=== PATIENT | male | born 1980 | race Caucasian/White ===

== ENCOUNTER 2020-08-17 18:11 | Emergency (ER) | payer OTHER, SELFPAY ==
[2020-08-17 18:27] VITALS: BP 116/89; PULSE 89; RESP 20; TEMP 36.9; O2SAT 100
--- NOTE | 2020-08-17 19:04 | ED.SKABFB ---
HPI - Skin/Abscess/Foreign Bdy General Chief complaint: Extremity Injury, Lower Stated complaint: infection on right leg Time Seen by Provider: 08/17/20 18:36 Source: patient and RN notes reviewed Mode of arrival: ambulatory Limitations: no limitations History of Present Illness HPI narrative: Patient presents today with a possible abscess to his right upper leg/buttocks x5 days. States it is not continuing to grow in size. History of several abscesses in the past, but has never had to have one lanced and drained. No history of MRSA. No treatment at home, patient takes ibuprofen daily for arthritis. complaint: abscess/boil Related Data Home Medications Medication Instructions Recorded Confirmed ibuprofen 800 mg PO Q6H 08/17/20 08/17/20 Allergies Allergy/AdvReac Type Severity Reaction Status Date / Time No Known Allergies Allergy Verified 08/17/20 18:32 Review of Systems Review of Systems: Narrative: CONSTITUTIONAL: Denies body aches, fever, chills, or sweats. EYES: Denies visual changes, redness, or discharge. ENT: Denies rhinorrhea, congestion, sore throat, or otalgia. CARDIOVASCULAR: Denies chest pain, palpitations, or edema. RESPIRATORY: Denies cough or dyspnea. GASTROINTESTINAL: Denies abdominal pain, nausea, vomiting, or diarrhea. GENITOURINARY: Denies dysuria or hematuria. SKIN: Denies rash, itching, or wounds.+ Right inner thigh MUSCULOSKELETAL: Denies back pain, joint pain, or myalgia. NEUROLOGIC: Denies headache, numbness, tingling, or weakness. PSYCH: Denies depression or anxiety. [facility] Family History Family History Mother Family history of thyroid disease Father Family history of seizure disorder Other Hypertension Social History Social History Smoking status: Heavy tobacco smoker Alcohol intake: current Gender identity (if verbalized by the patient): Male Comments At time of signature, I have reviewed and agree with nursing past medical, surgical, social and family history unless otherwise noted. Please see nursing chart for further information. There is no relevant family history pertinent to the presenting complaint Exam Narrative: Exam Narrative: GENERAL: Well-appearing, well-nourished, and in no acute distress. HEAD: Normocephalic, atraumatic. EYES: EOMI. No redness or drainage. Conjunctivae normal. ENT: Mucous membranes pink and moist. NECK: Normal AROM. CHEST: No respiratory distress. EXTREMITIES: Normal range of motion. No edema. SKIN: Warm, dry, no rash. Capillary refill normal. Normal skin turgor. Right proximal inner thigh/lower buttocks with a 4 x 7 cm area of erythema and induration with fluctuance in the center. Tender to palpation. NEURO: No focal deficits. Alert and oriented x3. Gait steady. PSYCH: Normal affect. No signs of depression or anxiety. Course Vital Signs Vital signs: Vital Signs Temperature 98.4 F 08/17/20 18:27 Pulse Rate 89 08/17/20 18:27 Respiratory Rate 20 08/17/20 18:27 Blood Pressure 116/89 08/17/20 18:27 Pulse Oximetry 100 08/17/20 18:27 Temperature 98.4 F 08/17/20 18:27 Pulse Rate 89 08/17/20 18:27 Respiratory Rate 20 08/17/20 18:27 Blood Pressure 116/89 08/17/20 18:27 Pulse Oximetry 100 08/17/20 18:27 Reviewed. Pt has been instructed to follow up with his PCP regarding his elevated blood pressure today. Procedures Abscess I/D lower extremity: Date of Incision: 08/17/20 Time of Incision: 19:04 Side (if applicable): right Local Anesthetic: lidocaine 1% Technique: incised with #11 blade and probed loculations Irrigation: No Packing used?: iodoform I&D Results: Pus and Blood Abcess I&D Additional Comments: Dressed with large bandaid MDM - Skin/Abscess/Foreign Bdy Differential Diagnosis Differential diagnosis: Likely
== END 2020-08-17 19:20 | disposition home or self-care (01) ==
PROVIDERS: Emergency Provider Nurse Practitioner; PCP Internal Medicine
DX: L02.415 Cutaneous abscess of right lower limb (principal); F17.200 Nicotine dependence, unspecified, uncomplicated
CPT/HCPCS: 10061; 87070; 87205; 99213; G0463

== ENCOUNTER 2021-05-22 17:47 | Emergency (ER) | payer OTHER, SELFPAY ==
[2021-05-22 17:54] VITALS: BP 125/84; PULSE 86; RESP 18; TEMP 36.7; O2SAT 99
[2021-05-22 18:11] VITALS: BP 102/67; PULSE 72; RESP 18; TEMP 36.9; O2SAT 100
--- NOTE | 2021-05-22 18:16 | ED.EYEPROB ---
HPI - Eye Problem General Chief complaint: Eye Problems Stated complaint: eye problems Time Seen by Provider: 05/22/21 18:15 Source: patient and RN notes reviewed Mode of arrival: ambulatory Limitations: no limitations History of Present Illness HPI Narrative: 40-year-old male presents with concern for possible foreign body in his right eye. Reports feeling a sensation of getting something in his eye 3 days ago. Reports since then his eyes been irritated and slightly painful. He denies any purulent discharge, vision changes. Reports some watery discharge. Reports he has been rinsing his eye with a an [id number] eye wash routinely. chief complaint: eye pain Related Data Allergies Allergy/AdvReac Type Severity Reaction Status Date / Time No Known Allergies Allergy Verified 05/22/21 17:51 Review of Systems Review of Systems: Narrative: CONSTITUTIONAL: Denies malaise, chills, sweats, or fever. EYES: Denies visual changes or discharge. Reports right eye irritation, pain, redness ENT: Denies rhinorrhea, congestion SKIN: Denies rash or itching. NEUROLOGIC: Denies headache. All systems reviewed & are unremarkable except as noted in HPI and below PMFSH Family History Family History Mother Family history of thyroid disease Father Family history of seizure disorder Other Hypertension Social History Social History Smoking status: Heavy tobacco smoker Alcohol intake: current Gender identity (if verbalized by the patient): Male Comments At time of signature, agree with nursing past medical, surgical, social and family history. There is no relevant family history pertinent to the presenting complaint Exam Narrative: Exam Narrative: GENERAL: Well-appearing, well-nourished, and in no acute distress. HEAD: Normocephalic, atraumatic. EYES: PERRLA and EOMI. No nystagmus. Conjunctivae clear. Right eye conjunctivae clear, sclera injected, no foreign body noted on visual inspection or Palafox lamp exam, corneal abrasion noted upon Palafox lamp exam, see note ENT: Mucous membranes moist. NECK: Supple. No lymphadenopathy. CHEST: No respiratory distress. Speaks in full sentences. HEART: Regular rate and rhythm. SKIN: Warm, dry, no rash. NEURO: Alert and oriented x3. PSYCH: Normal mood and affect Course Course Emergency Course: Patient is aware of diagnosis, understands and agrees to treatment plan. Anticipatory guidance given. Patient agrees to follow-up as directed and is aware of reasons to seek care at the emergency department. Portions of this record may have been created with voice recognition software Vital Signs Vital signs: Vital Signs Temperature 98.1 F 05/22/21 17:54 Pulse Rate 86 05/22/21 17:54 Respiratory Rate 18 05/22/21 17:54 Blood Pressure 125/84 05/22/21 17:54 Pulse Oximetry 99 05/22/21 17:54 Temperature 98.4 F 05/22/21 18:11 Pulse Rate 72 05/22/21 18:11 Respiratory Rate 18 05/22/21 18:11 Blood Pressure 102/67 05/22/21 18:11 Pulse Oximetry 100 05/22/21 18:11 Reviewed. Procedures Other Procedure Procedure 1: Other Procedure: Tetracaine 1 gtt instilled in right eye, fluorescein stain applied. 4 linear corneal abrasions noted upon palafox lamp exam at approximately 7 o'clock in relation to the pupil. Eye washed with NS 100 ml. No foreign bodies or Kumar sign noted. MDM - Eye Problem MDM Narrative Medical decision making narrative: Consideration of the following conditions may be warranted for the presenting problem, they are not final diagnoses: Bacterial conjunctivitis, allergic conjunctivitis, viral conjunctivitis, foreign body, blepharitis, chalazion, hordeolum, corneal abrasion, preseptal cellulitis, orbital cellulitis. No evidence of proptosis, ophthalmoplegia, vision loss, pain with eye movement. Exam findings show no acute concern
== END 2021-05-22 18:20 | disposition home or self-care (01) ==
PROVIDERS: Emergency Provider Nurse Practitioner; PCP Internal Medicine
DX: S05.01XA Injury of conjunctiva and corneal abrasion without foreign body, right eye, initial encounter (principal); X58.XXXA Exposure to other specified factors, initial encounter; F17.210 Nicotine dependence, cigarettes, uncomplicated
CPT/HCPCS: 99213; A9270; G0463

== ENCOUNTER 2021-08-06 11:28 | Outpatient (CLI) | payer OTHER, SELFPAY ==
--- NOTE | 2021-08-06 | ECG_ITS ---
Measurements Intervals [place] Rate: 61 P: 30 NV: 165 QRS: -11 QRSD: 98 T: 20 QT: 377 QTc: 381 Interpretive Statements SINUS RHYTHM INCOMPLETE RIGHT BUNDLE BRANCH BLOCK BORDERLINE ECG Electronically Signed On 08-06-2021 14:36:34 CDT by Rob Joe D.O.
== END 2021-08-06 11:29 | disposition home or self-care (01) ==
PROVIDERS: PCP Internal Medicine; Visit Provider Internal Medicine
DX: R03.0 Elevated blood-pressure reading, without diagnosis of hypertension (principal); I45.10 Unspecified right bundle-branch block
CPT/HCPCS: 93005

== ENCOUNTER 2021-12-31 14:25 | Emergency (ER) | payer OTHER, SELFPAY ==
--- NOTE | ~2021-12-31 | XR_ITS ---
EXAMINATION: XR ankle LT min 3V EXAM DATE: 12/31/2021 14:44 INDICATION: rolled ankle last night/lateral pain . TECHNIQUE: Left ankle frontal, lateral and oblique projections obtained and reviewed. There is no pr ior study for comparison. FINDINGS: There is acute closed posttraumatic nondisplaced fracture at the base of the left 5th metat arsal bone. No other acute fractures. The ankle mortise appears intact. IMPRESSION: Left 5th metatarsal base fracture. Reviewed, dictated and finalized at location A. [employer]
[2021-12-31 14:35] VITALS: BP 134/83; PULSE 84; RESP 18; TEMP 36.8; O2SAT 98
--- NOTE | 2021-12-31 14:37 | ED.LOWEXIN ---
HPI - Extremity Injury (Lower) General Chief Complaint: Extremity Injury, Lower Stated Complaint: Lt Ankle Pain Time Seen by Provider: 12/31/21 14:37 Source: patient Mode of arrival: ambulatory Limitations: no limitations History of Present Illness HPI Narrative: 41 yo M presents with c/o pain to L ankle and L foot. 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 did not fall completely to the ground, was able to catch himself. ambulatory with limp. ROM decreased with distal NV intact. brusiing noted to lateral aspect L foot. All systems reviewed and negative except as noted above. Related Data Allergies Allergy/AdvReac Type Severity Reaction Status Date / Time No Known Allergies Allergy Verified 12/31/21 14:26 Review of Systems Review of Systems: CONSTITUTIONAL: Denies fever, chills, or sweats. EYES: Denies visual changes, redness, or discharge. ENT: Denies rhinorrhea, congestion, sore throat, or otalgia. CARDIOVASCULAR: Denies chest pain, palpitations, or edema. RESPIRATORY: Denies cough or dyspnea. GASTROINTESTINAL: Denies abdominal pain, nausea, vomiting, or diarrhea. GENITOURINARY: Denies dysuria or hematuria. SKIN: Denies rash or itching. MUSCULOSKELETAL: Denies back pain, joint pain, or myalgia. Reports pain to left foot and left ankle. NEUROLOGIC: Denies headache, numbness, or weakness. PSYCHIATRIC: Denies anxiety or depression. All other systems reviewed are negative, except as documented in HPI. PMFSH Family History Family History Mother Family history of thyroid disease Father Family history of seizure disorder Other Hypertension Social History Social History Years smoked: 26 Smoking status: Current every day smoker Tobacco type: cigarettes Second hand tobacco smoke exposure: No Alcohol intake: current Substance use: never Substance use type: does not use Gender identity (if verbalized by the patient): Male Comments At time of signature, agree with nursing past medical, surgical, social and family history. There is no relevant family history pertinent to the presenting complaint. Exam Narrative: GENERAL: This is a well-nourished, well-developed patient, in no apparent distress. HEAD: normocephalic, atraumatic. EYES: PERRL. Sclera clear/white. Vision is grossly intact. EARS: External ears normal, auditory canals clear and without drainage, TMs normal without perforation. Hearing grossly intact. NOSE: External nose normal with no obvious nasal discharge, nares without redness, no rhinorrhea. THROAT: Mucous membranes moist, posterior pharynx clear. NECK: Neck supple, non-tender without lymphadenopathy, masses or thyromegaly. CARDIOVASCULAR: Regular rate and rhythm without murmurs, gallops, or rubs. RESPIRATORY: Clear to auscultation. Breath sounds equal bilaterally. No wheezes, rales, or rhonchi. GASTROINTESTINAL: Abdomen soft, non-tender, nondistended. Bowel sounds are active. No hepato-splenomegaly, or palpable masses. No guarding. SKIN: warm, Dry, intact with no suspicious lesions or rash, good texture and turgor. NEURO: awake, alert, and oriented to person, place and time. There were no obvious focal neurologic abnormalities. EXTREMITIES: No joint tenderness, effusion, or edema noted. No calf tenderness. Negative Homans sign bilaterally. Mild swelling with lateral tenderness to left ankle. Normal range of motion to left ankle. Tenderness to lateral aspect of left foot with bruising and swelling. Decreased range of motion to left foot. Bony tenderness to proximal aspect left fifth metatarsal. BACK: Nontender without deformity. No CVA tenderness. Course Course Level of Care: Express Care Visit Vital Signs Vital signs: Vital Signs Temperature 36.8 C 12/31/21 14:35 Pulse Rate 84 12/31/21 14:35 Respiratory Rate 18 12/31/21 14:35 Blood Pres
== END 2021-12-31 15:16 | disposition home or self-care (01) ==
PROVIDERS: Emergency Provider Nurse Practitioner Family; PCP Internal Medicine
DX: S92.355A Nondisplaced fracture of fifth metatarsal bone, left foot, initial encounter for closed fracture (principal); X50.9XXA Other and unspecified overexertion or strenuous movements or postures, initial encounter; F17.210 Nicotine dependence, cigarettes, uncomplicated
CPT/HCPCS: 29515; 73610; 99214; G0463

== ENCOUNTER 2022-04-18 09:27 | Outpatient (CLI) | payer OTHER, SELFPAY ==
--- NOTE | 2022-04-18 11:15 | NEURO_ITS ---
Impression: # Complains of numbness of lower extremities, left more than right. History of back surgery. 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 # Needle/EMG exam mildly neurogenic. Nerve Conduction Studies Anti Sensory Summary Table Stim Site NR Peak (ms) P-T Amp (?V) Site1 Site2 Delta-P (ms) Dist (cm) Trent (m/s) Left Sup Fibular Anti Sensory (Ant Lat Mall) 14 cm 4.6 4.3 14 cm Ant Lat Mall 4.6 16.0 35 Right Sup Fibular Anti Sensory (Ant Lat Mall) 14 cm 3.6 16.8 14 cm Ant Lat Mall 3.6 16.0 44 Left Sural Anti Sensory (Lat Mall) Calf 4.3 4.2 Calf Lat Mall 4.3 16.0 37 Right Sural Anti Sensory (Lat Mall) Calf 4.3 5.9 Calf Lat Mall 4.3 16.0 37 Motor Summary Table Stim Site NR Onset (ms) O-P Amp (mV) Site1 Site2 Delta-0 (ms) Dist (cm) Trent (m/s) Left Peroneal Motor (Vastus Med) Ankle 5.0 1.8 Popit Ankle 12.1 46.0 38 Popit 17.1 1.5 Right Peroneal Motor (Vastus Med) Ankle 4.5 4.2 Popit Ankle 11.3 43.0 38 Popit 15.8 3.9 Left Tibial Motor (Abd Simon Brev) Ankle 4.8 2.8 Knee Ankle 13.0 47.0 36 Knee 17.8 1.5 Right Tibial Motor (Abd Simon Brev) Ankle 4.7 3.0 Knee Ankle 11.3 46.0 41 Knee 16.0 1.3 F Wave Studies NR F-Lat (ms) L-R F-Lat (ms) Left Peroneal (Mrkrs) (EDB) 58.45 0.35 Right Peroneal (Mrkrs) (EDB) 58.80 0.35 Left Tibial (Mrkrs) (Abd Hallucis) 58.54 1.34 Right Tibial (Mrkrs) (Abd Hallucis) 57.20 1.34 EMG Side Muscle Nerve Root Ins Act Fibs Amp Dur Recrt Comment Right AntTibialis Dp Br Fibular L4-5 Nml Nml Nml Nml Reduced Right Gastroc Tibial S1-2 Nml Nml Nml Nml Reduced Right Fibularis Long Sup Br Fibular L5-S1 Nml Nml Nml Nml Reduced Right Flex Dig Long Tibial L5-S2 Nml Nml Nml Nml Reduced Right Ext Dig Brev Dp Br Fibular L5, S1 Nml Nml Nml Nml Reduced Left AntTibialis Dp Br Fibular L4-5 Nml Nml Nml Nml Reduced Left Gastroc Tibial S1-2 Nml Nml Nml Nml Reduced Left Fibularis Long Sup Br Fibular L5-S1 Nml Nml Nml Nml Reduced Left Flex Dig Long Tibial L5-S2 Nml Nml Nml Nml Reduced Left Ext Dig Brev Dp Br Fibular L5, S1 Nml Nml Nml Nml Reduced Right ExtHallLong Dp Br Fibular L5, S1 Nml Nml Nml Nml Reduced Left ExtHallLong Dp Br Fibular L5, S1 Nml Nml Nml Nml Reduced MTDD
== END 2022-04-18 09:28 | disposition home or self-care (01) ==
PROVIDERS: PCP Internal Medicine; Visit Provider Internal Medicine
DX: G62.9 Polyneuropathy, unspecified (principal)
CPT/HCPCS: 95886; 95910

== ENCOUNTER 2023-02-11 13:19 | Emergency (ER) | payer OTHER, SELFPAY ==
--- NOTE | 2023-02-11 13:23 | ED.SKABFB ---
HPI - Skin/Abscess/Foreign Bdy General Chief complaint: Skin/Abscess/Foreign Body Stated complaint: Abscess Time Seen by Provider: 02/11/23 13:27 Source: patient, RN notes reviewed and old records reviewed Mode of arrival: ambulatory Limitations: no limitations History of Present Illness HPI narrative: 42-year-old male presents to [facility] with concerns for an abscess to the right lower abdomen. States it started about 4 days ago. Had been applying warm moist compresses and hoping to get it to pop by itself yesterday. Tender to touch, fluctuant center. Has a history of abscesses and has had multiple lanced. Reports history of staph infections Denies fevers Related Data Allergies Allergy/AdvReac Type Severity Reaction Status Date / Time No Known Allergies Allergy Verified 02/11/23 13:30 Review of Systems Review of Systems: All systems reviewed & are unremarkable except as noted in HPI and below Constitutional: Constitutional: Reports no additional constitutional complaints Eyes: Eyes: Reports no additional eye complaints ENT: Reports system reviewed and no additional complaints, except as documented Cardiovascular: Cardiovascular: Reports no additional cardiovascular complaints, Denies chest pain and Denies dyspnea Respiratory: Respiratory: Reports no additional respiratory complaints, Denies chest congestion, Denies cough and Denies dyspnea Gastrointestinal: Gastrointestinal: Reports no additional gastrointestinal complaints, Denies abdominal pain, Denies nausea and Denies vomiting Musculoskeletal: Musculoskeletal: Reports no additional musculoskeletal complaints Integumentary/Breasts: Skin/Breast: Reports as per HPI Neurologic: Reports system reviewed and no additional complaints, except as documented Psychiatric: Psychiatric: Reports no additional psychiatric complaints Allergic/Immunologic: Allergic/Immunologic: Reports no additional allergic/immunologic complaints [facility] Past Medical History Medical History Fracture of left foot Family History Family History Mother Family history of thyroid disease Father Family history of seizure disorder Other Hypertension Social History Social History Years smoked: 26 Smoking status: Current every day smoker Tobacco type: cigarettes Second hand tobacco smoke exposure: No Alcohol intake: current Substance use: never Substance use type: does not use Lack of Transportation: No Lack of Food: Never True Current Housing: I Have Housing Concerned About Future Housing: No Difficulty Paying Gas/Electric Bills: No Difficulty Paying for Meds: No Currently Unemployed: No Education: Trade/Vocational Certificate Difficulty w/ Childcare or Family Care: No Gender identity (if verbalized by the patient): Male Comments At the time of my signature, I reviewed and agree with the nursing past medical, surgical, social, and family history. There is no relevant family history pertinent to the patient complaint. Exam Const: General: cooperative, healthy appearing, comfortable, no acute distress, well developed, alert and well nourished Nutritional Appearance: well nourished and obese morbidly obese Orientation/consciousness: patient oriented x3 Limitations: no limitations HENMT: Head: normal to inspection Ears: hearing grossly normal bilaterally and external ears normal Face/Nose/Sinus: Normal external nose present, Normal nares present, Normal nasal mucous membranes and turbinates present and normal facial exam Face and sinus: normal facial exam Mouth: Yes Normal oral and palatal mucosa present, Yes lip normal and Yes moist mucous membranes Eyes: General: appearance normal, both eyes and all related structures Alignment and Position: alignment normal Periorbital: periorb
[2023-02-11 13:25] VITALS: BP 125/88; PULSE 70; RESP 18; TEMP 36.4; O2SAT 100
--- NOTE | 2023-02-11 14:05 | PC.NURSE ---
PT HAD I&D, WOUND CULTURE OBTAINED, SITE CLEANED BY CAPTAIN [employer]. DRESSING PLACED PER RN. PT TOLERATED WELL.
== END 2023-02-11 13:52 | disposition home or self-care (01) ==
PROVIDERS: Emergency Provider Nurse Practitioner
DX: L02.211 Cutaneous abscess of abdominal wall (principal); F17.210 Nicotine dependence, cigarettes, uncomplicated
CPT/HCPCS: 10060; 87070; 87147; 87181; 87186; 87205; 99213; G0463

== ENCOUNTER 2023-11-13 01:05 | Day surgery (SDC) | payer OTHER, SELFPAY ==
[2023-10-30 13:18] VITALS: BMI 34.9
--- NOTE | 2023-11-09 10:56 | SUR.PREOP ---
Patient called regarding upcoming procedure. Message left on pt's voicemail regarding appointment times.
[2023-11-13 12:12] VITALS: BP 118/87; PULSE 89; RESP 17; TEMP 35.9; O2SAT 99; BMI 34.6
[2023-11-13] MEDS: LACTATED RINGERS 1,000 ML 150 ML IV CONT (12:22)
--- NOTE | 2023-11-13 12:35 | P.PNAN_ITS ---
Anes - Initial Pre Proc Eval Procedure: Operation Date: 11/13/23 14:30 Proposed Procedures p Colonoscopy - Harrison Miranda MD Date/Time: 11/13/23 12:35 Surgeon: Harrison Miranda MD Pre Op Diagnosis: Other fecal abnormalities Patient Data Age: 43 Gender: M Height: 1.88 m Weight: 122.3 kg Last Vital Signs Temp 96.6 F L 11/13/23 12:12 Pulse 89 11/13/23 12:12 Resp 17 11/13/23 12:12 BP 118/87 11/13/23 12:12 Pulse Ox 99 11/13/23 12:12 O2 Del Method Room Air 11/13/23 12:12 Allergies Allergy/AdvReac Type Severity Reaction Status Date / Time No Known Allergies Allergy Verified 11/13/23 12:11 Home Medications Medication Instructions Recorded Confirmed Type rosuvastatin 10 mg tablet See Rx Instructions .Route 09/17/23 11/13/23 Rx .COMPLEX #90 tabs Patient hx anesthesia problems: post op nausea/vomiting Family hx anesthesia problems: none Results Review: All pre-operative results and documents have been reviewed as part of the pre- operative evaluation. [facility] Past Medical History Medical History Fracture of left foot Family History Family History Mother Family history of thyroid disease Father Family history of seizure disorder Other Hypertension Social History Social History Smoking packs per day: 1 Smoking cigarettes per day: 20.0 Years smoked: 30 Smoking pack-years: 30.00 Smoking status: Current every day smoker Tobacco type: cigarettes Second hand tobacco smoke exposure: No Alcohol intake: never Substance use: unknown Substance use type: marijuana Lack of Transportation: No Lack of Food: Never True Current Housing: I Have Housing Concerned About Future Housing: No Difficulty Paying Gas/Electric Bills: No Difficulty Paying for Meds: No Currently Unemployed: No Education: Trade/Vocational Certificate Difficulty w/ Childcare or Family Care: No Living arrangements: with family Gender identity (if verbalized by the patient): Male Spiritual care concerns: No Anes - Eval Final PreProcedure Day of Procedure 11/13/23 12:35 Patient weight: obese Heart: regular rate and rhythm Lungs: clear to auscultation Airway: Mallampati scale class III Neurological: alert and oriented Last oral intake: >/= 8 hours ASA classification: III Emergent: no Anesthetic plan: proceed Anesthesia type and monitoring: general GIVS and standard monitoring Results Review: All pre-operative results and documents have been reviewed as part of the pre- operative evaluation. Informed Consent: The patient's anesthetic plan and its attendant risks and benefits were discussed with the patient/family/POA. Questions were solicited and answers provided to the satisfaction of the patient/family/POA.
[2023-11-13] MEDS: ONDANSETRON INJ 4 MG/2 ML VIAL IV PUSH (12:45)
--- NOTE | 2023-11-13 12:56 | PM.HPGS ---
History of Present Illness History of Present Illness Consent: Risks, benefits, and alternatives have been discussed and questions answered. Patient agrees to proceed with procedure. Chief complaint: Other fecal abnormalities Narrative: Doug Schaefer is a 43 year old male with + cologuard, had colonoscopy 10 years ago Review of Systems Constitutional: Constitutional: Denies headache(s) and Denies weakness Eyes: Eyes: Denies blurry vision ENT: Reports Normal hearing present, Denies headache(s) and Denies neck pain Cardiovascular: Cardiovascular: Denies chest pain and Denies dyspnea Respiratory: Respiratory: Denies dyspnea Gastrointestinal: Gastrointestinal: Reports no additional gastrointestinal complaints Genitourinary: Genitourinary: Denies dysuria Musculoskeletal: Musculoskeletal: Denies neck pain Integumentary/Breasts: Skin/Breast: Denies dry skin Neurologic: Reports Normal hearing present, Denies headache(s) and Denies weakness Psychiatric: Psychiatric: Denies anxiety Endocrine: Endocrine: Denies change in body appearance Hematologic/Lymphatic: Hematologic/Lymphatic: Denies easy bleeding Allergic/Immunologic: Allergic/Immunologic: Denies urticaria PMFSH Past Medical History Medical History (Updated 11/13/23 @ 12:57 by Harrison Miranda MD) Fracture of left foot Positive colorectal cancer screening using Cologuard test Family History Family History Mother Family history of thyroid disease Father Family history of seizure disorder Other Hypertension Social History Social History Smoking packs per day: 1 Smoking cigarettes per day: 20.0 Years smoked: 30 Smoking pack-years: 30.00 Smoking status: Current every day smoker Tobacco type: cigarettes Second hand tobacco smoke exposure: No Alcohol intake: never Substance use: unknown Substance use type: marijuana Lack of Transportation: No Lack of Food: Never True Current Housing: I Have Housing Concerned About Future Housing: No Difficulty Paying Gas/Electric Bills: No Difficulty Paying for Meds: No Currently Unemployed: No Education: Trade/Vocational Certificate Difficulty w/ Childcare or Family Care: No Living arrangements: with family Gender identity (if verbalized by the patient): Male Spiritual care concerns: No Meds Home Medications and Allergies Home Medications Medication Instructions Recorded Confirmed Type rosuvastatin 10 mg tablet See Rx Instructions .Route 09/17/23 11/13/23 Rx .COMPLEX #90 tabs Allergies Allergy/AdvReac Type Severity Reaction Status Date / Time No Known Allergies Allergy Verified 11/13/23 12:11 Vital Signs Vital Signs - 24 hr 11/13/23 12:12 Temperature 96.6 F L Pulse Rate 89 Respiratory Rate 17 Blood Pressure 118/87 Pulse Oximetry 99 Oxygen Delivery Room Air Exam Const: General: comfortable and no acute distress HENMT: Face/Nose/Sinus: Normal nares present Eyes: General: appearance normal, both eyes and all related structures Neck: Neck: no JVD Resp: Auscultation: clear to auscultation bilaterally Cardio: Rate: regular rate Rhythm: regular rhythm GI: Inspection: non-distended GI Palp: Yes Soft to palpation Skin: General skin exam: normal color Neuro: General: gait normal Speech: normal speech Extrem: General: normal to inspection Psych: Mental Status: mental status grossly normal Assessment and Plan Assessment and plan (1) Positive colorectal cancer screening using Cologuard test: Code(s): R19.5 - Other fecal abnormalities Status: Acute Assessment and Plan: colonoscopy
[2023-11-13 13:13] VITALS: BP 132/91; PULSE 71; RESP 20; O2SAT 96
[2023-11-13 13:23] VITALS: BP 119/88; PULSE 87; RESP 24; O2SAT 97
[2023-11-13 13:33] VITALS: BP 118/81; PULSE 66; RESP 20; O2SAT 97
== END 2023-11-13 13:41 | disposition home or self-care (01) ==
PROVIDERS: PCP Nurse Practitioner Family; Visit Provider Internal Medicine Gastroenterology
PROC: 0DJD8ZZ Inspection of Lower Intestinal Tract, Via Natural or Artificial Opening Endoscopic (ICD-10-PCS; CPT 45378; principal; 2023-11-13 14:30)
DX: D12.2 Benign neoplasm of ascending colon (principal); F17.210 Nicotine dependence, cigarettes, uncomplicated; E66.9 Obesity, unspecified; Z68.34 Body mass index [BMI] 34.0-34.9, adult
CPT/HCPCS: 45385; 88305; J1596; J2405; J2704; J7120

== ENCOUNTER 2024-03-08 15:52 | Emergency (ER) | payer OTHER, SELFPAY ==
[2024-03-08 16:01] VITALS: BP 136/94; PULSE 89; RESP 16; TEMP 37.1; O2SAT 98
--- NOTE | 2024-03-08 16:06 | ED.SKABFB ---
HPI - Skin/Abscess/Foreign Bdy General Chief complaint: Skin/Abscess/Foreign Body Stated complaint: ABSCESSES Time Seen by Provider: 03/08/24 16:03 Source: patient and RN notes reviewed Mode of arrival: ambulatory Limitations: dementia History of Present Illness HPI narrative: 43-year-old male presents with concern for ?boils?, 1 under his right axilla and 1 on his left posterior thigh. Reports history hidradenitis supperitiva,, reports he is waiting for treatment with injections for that. He denies fever, aches, chills, sweats. Denies any drainage from the sites. MD complaint: other (Redness) Related Data Allergies Allergy/AdvReac Type Severity Reaction Status Date / Time No Known Allergies Allergy Verified 03/08/24 16:00 Review of Systems Review of Systems: CONSTITUTIONAL: Denies malaise, chills, sweats, or fever. EYES: Denies redness, or discharge. ENT: Denies rhinorrhea, congestion, swollen lips, swollen tongue CARDIOVASCULAR: Denies chest pain, palpitations, or edema. RESPIRATORY: Denies cough or dyspnea. GASTROINTESTINAL: Denies abdominal pain, nausea, vomiting SKIN: Reports boils under his right axilla and on the left posterior thigh. Denies purulent drainage, vesicles, bullae, numbness, pain beyond proportion MUSCULOSKELETAL: Denies joint pain or myalgia. NEUROLOGIC: Denies headache. All systems reviewed & are unremarkable except as noted in HPI and below PMFSH Past Medical History Medical History Fracture of left foot Positive colorectal cancer screening using Cologuard test Family History Family History Mother Family history of thyroid disease Father Family history of seizure disorder Other Hypertension Social History Social History Smoking packs per day: 1 Smoking cigarettes per day: 20.0 Years smoked: 30 Smoking pack-years: 30.00 Smoking status: Current every day smoker Tobacco type: cigarettes Second hand tobacco smoke exposure: No Alcohol intake: never Substance use: unknown Substance use type: marijuana Lack of Transportation: No Lack of Food: Never True Current Housing: I Have Housing Concerned About Future Housing: No Difficulty Paying Gas/Electric Bills: No Difficulty Paying for Meds: No Currently Unemployed: No Education: Trade/Vocational Certificate Difficulty w/ Childcare or Family Care: No Living arrangements: with family Gender identity (if verbalized by the patient): Male Spiritual care concerns: No Comments At time of signature, agree with nursing past medical, surgical, social and family history. There is no relevant family history pertinent to the presenting complaint Exam Narrative: GENERAL: Well-appearing, well-nourished, and in no acute distress. HEAD: Normocephalic, atraumatic. EYES: PERRLA, conjunctivae clear ENT: Mucous membranes moist. NECK: Supple. No lymphadenopathy CHEST: Clear to auscultation. No respiratory distress. HEART: Regular rate and rhythm. SKIN: Warm, dry. Approximately 4 cm in diameter raised erythematous tender area to the left posterior thigh without fluctuation, 2 raised erythematous tender areas a proximally 2 cm in diameter each noted to the chest wall under the right axilla. No vesicles, bullae, necrosis, ecchymosis, crepitus noted. NEURO: Alert and oriented x3. PSYCH: Normal mood and affect Course Course Emergency Course: Patient is aware of diagnosis, understands and agrees to treatment plan. Anticipatory guidance given. Patient agrees to follow-up as directed and is aware of reasons to seek care at the emergency department. Portions of this record may have been created with voice recognition software Level of Care: Express Care Visit Vital Signs Vital signs: Vital Signs Temperature 98.7 F 03/08/24 16:01 P
== END 2024-03-08 16:40 | disposition home or self-care (01) ==
PROVIDERS: Emergency Provider Nurse Practitioner
DX: L73.2 Hidradenitis suppurativa (principal); F17.210 Nicotine dependence, cigarettes, uncomplicated
CPT/HCPCS: 99213; G0463

== ENCOUNTER 2024-12-20 08:36 | Outpatient (CLI) | payer OTHER, SELFPAY ==
--- NOTE | ~2024-12-20 | US_ITS ---
EXAM: ABDOMEN ULTRASOUND HISTORY: generalized abdominal pain site unspecified COMPARISON: Reference is made to a CT examination of the abdomen and pelvis performed 02/12/2019 FINDINGS: LIVER: The liver is increased in echogenicity and unremarkable in size. The portal vein is patent demonstrating hepatopedal flow. The contour of the liver is smooth. GALLBLADDER: Surgically absent BILE DUCTS: Common bile duct measures 2.9mm. PANCREAS: Limited evaluation of the pancreas secondary to overlying bowel gas SPLEEN: The spleen is heterogeneous in echogenicity and unremarkable in size measuring 10.6cm in long itudinal dimension. Findings suggesting prior granulomatous disease are present. RIGHT KIDNEY: 11.4 cm. In length. No hydronephrosis or bulky renal calculi. LEFT KIDNEY: 12.6cm in length. No hydronephrosis or renal calculi. VASCULATURE : The abdominal aorta is nonaneurysmal. The IVC is patent. IMPRESSION: Fatty infiltration of the liver. Evaluation of the pancreas is limited by overlying bowel gas. Findings suggesting prior granulomatous disease. Reviewed, dictated and finalized at location A. NICAL PROFESSIONAL
== END 2024-12-20 08:37 | disposition home or self-care (01) ==
PROVIDERS: PCP Nurse Practitioner Family; Visit Provider Nurse Practitioner Family
DX: M54.10 Radiculopathy, site unspecified (principal); M54.9 Dorsalgia, unspecified; R10.13 Epigastric pain; K76.0 Fatty (change of) liver, not elsewhere classified
CPT/HCPCS: 76700

== ENCOUNTER 2025-01-19 00:48 | Day surgery (SDC) | payer OTHER, SELFPAY ==
[2025-01-14 08:55] VITALS: BMI 36.0
--- OUTSIDE RECORDS SUMMARY | 2025-01-19 00:52 | XMS_ITS | Clinical Summary ---
Author Organization [facility] Address [address] [place] [address] Care Team Providers Care Sports Director Name Role Phone Parisa Martin MD Primary Care Provider Source Comments [facility],non-owned Affiliates and Associated Physician Practices is amultiple site organization consisting of ambulatory clinics and hospital sitesin [place], [place], [place] and [place]. This disclosure is being madepursuant to the Care Everywhere program and may not contain all information available regarding this patient. Last updated 18.[facility] [employer] Social History Tobacco Use Types Packs/Day Years Used Date Smoking Tobacco: Never Assessed Sex and Gender Information Value Date Recorded Sex Assigned at Not on file Gender Identity Not on file Sexual Orientation Not on file Plan of Treatment Health Maintenance Due Date Last Done Comments COLOGUARD (AGES 45-75) - COL ON CA SCREENING 1978 COLON MONITORING 1978 COLONOSCOPY - COLON CA SCREENING 1978 CT COLONOGRAPHY - COLON CA SCREENING 1978 Colorectal Cancer Screening 1978 FIT - COLON CA SCREENING 1978 FLEX SIG - COLON CA SCREENING 1978 LIPID TESTING 1978 HIV SCREENING 1993 HEPATITIS C SCREENING 06/29/1996 DTAP/TDAP/TD VACCINES (1 - Tdap) 1997 HEPATITIS B VACCINE (1 of 3 - 19+ 3-dose series) 1997 COVID-19 VACCINE ( - 2023-2 5 season) 2024 INFLUENZA VACCINE (#1) 2024 DEPRESSION SCREENING 11/05/2024 ZOSTER VACCINE (1 of 2) 2028 HIB VACCINE Aged Out No longer eligi ble based on patient's age to complete this topic HPV VACCINE Aged Out No longer eligi ble based on patient's age to complete this topic MENINGOCOCCAL (Group B) VACC INE SHARED DECISION-MAKING Aged Out No longer eligibl e based on patient's age to complete this topic MENINGOCOCCAL GROUPS A/C/Y/W VACCINE Aged Out No longer eligible b ased on patient's age to complete this topic PNEUMOCOCCAL VACCINE Aged Out No long er eligible based on patient's age to complete this topic Care Teams Sports Director Relationship Specialty Start Date End Date Parisa Martin MD PCP - General 07/21/11
--- OUTSIDE RECORDS SUMMARY | 2025-01-19 00:52 | XMS_ITS | Clinical Summary ---
Author Organization [facility] Address [address] [place] [address] Care Team Providers Care Book Sewing Machine Operator Name Role Phone Khris Hernandez MD Primary Care Provider [phone] Allergies No known active allergies Medications rosuvastatin 10 MG tablet Take 0.5 tablets (5 mg total) by mouth nightly at bedtime. Active cyclobenzaprine 10 MG tablet Take 10 mg by mouth 3 (three) times daily as needed for Muscle Spasms. Active Active Problems Problem Noted Date Diagnosed Date Lumbar radiculopathy 12/19/2019 Family History Medical History Relation Comments Seizures Father Relation Status Comments Father Alive seizure history Mother Alive Sister Alive Social History Tobacco Use Types Packs/Day Years Used Date Smoking Tobacco: Every Day Cigarettes Smokeless Tobacco: Never Tobacco Cessation:Counseling Given: Yes Alcohol Use Standard Drinks/Week Comments Not Currently 0 (1 standard drink = 0.6 oz pur e alcohol) Overall Financial Resource Strain (CARDIA) Answe r Date Recorded Difficulty of Paying Living Expenses Not hard at all 12/19/2019 [facility] [place] [facility] Occup[facility] ional [facility] - Occupational Stress Questionnaire Answer Date Recorded Feeling of Stress Not at all 12/19/2019 Exercise Vital Sign Answer Date Recorde d Days of Exercise per Week 0 days 2019 Minutes of Exercise per Session 0 min 12/19/2019 Hunger Vital Sign Answer Date Recorded Worried About Running Out of Food in the Last Ye ar Never true 12/19/2019 Ran Out of Food in the Last Year Never true 12/19/2019 PRAPARE - Transportation Answer Date Re corded Lack of Transportation (Medical) No 12/19/2019 Lack of Transportation (Non-Medical) No 12/19/2019 Sex and Gender Information Value Date Recorded Sex Assigned at Not on file Legal Sex Male 8:06 AM CDT Gender Identity Not on file Sexual Orientation Not on file 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 Not on file Not on file 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 Not on file Not on file Last Filed Vital Signs Vital Sign Reading Time Taken Comments Blood Pressure 165/95 05/26/2023 9:30 PM CDT Pulse 89 05/26/2023 9:02 PM CDT Temperature 36.8 C (98.3 F) 05/26/2023 9:02 PM CDT Respiratory Rate 18 05/26/2023 9:30 PM CDT Oxygen Saturation 96% 05/26/2023 9:30 PM CDT Inhaled Oxygen Concentration - - Weight 124.7 kg (275 lb) 05/26/2023 9:02 PM CDT Height 188 cm (6' 2 ) 05/26/2023 9:02 PM CDT Body Mass Index 35.31 05/26/2023 9:02 PM CDT Plan of Treatment Health Maintenance Due Date Last Done Comments Colorectal Cancer Screening Colonoscopy (10 Years) 1978 Annual Physical 1981 Pneumococcal Vaccine: Pediat rics (0 to 5 Years) and At-Risk Patients (6 to 64 Years) (1 of 2 - PCV) 1984 Hepatitis C 1996 DTaP, Tdap and Td Vaccines ( 1 - Tdap) 1997 Hepatitis B Vaccines (1 of 3 - 19+ 3-dose series) 1997 COVID-19 Vaccine ( - 2023-2 5 season) 2024 Influenza Adult (#1) 2024 Meningococcal B Vaccine Aged Out No l onger eligible based on patient's age to complete this topic Meningococcal Vaccine Aged Out No jing shahida eligible based on patient's age to complete this topic RSV Immunizations Under 20 Months Aged Out No longer eligible based on patient's age to complete this topic Insurance [facility] [place] Care Teams Book Sewing Machine Operator Relationship Specialty Start Date End Date Khris Hernandez MD [address] [place] [phone] PCP - General INTERNAL MEDICINE 01/02/20
--- OUTSIDE RECORDS SUMMARY | 2025-01-19 00:52 | XMS_ITS | Referral Summary ---
Author Organization [facility] Address [address] [place] [address] Care Team Providers Care Station Captain Name Role Phone Parisa Martin MD Primary Care Provider [phone] Source Comments [facility],non-[facility] Affiliates and Associated Physician Practices is amultiple site organization consisting of ambulatory clinics and hospital sitesin [place], [place], [place] and [place]. This disclosure is being madepursuant to the Care Everywhere program and may not contain all information available regarding this patient. Last updated 18.[facility] Social History Tobacco Use Types Packs/Day Years Used Date Smoking Tobacco: Never Assessed Sex and Gender Information Value Date Recorded Sex Assigned at Not on file Gender Identity Not on file Sexual Orientation Not on file Plan of Treatment Not on file Care Teams Station Captain Relationship Specialty Start Date End Date Parisa Martin MD PCP - General 07/21/11
--- OUTSIDE RECORDS SUMMARY | 2025-01-19 00:52 | XMS_ITS | Patient Health Summary ---
Author Organization [facility] Address [address] [place] [address] Care Team Providers Care Python Engineer Name Role Phone Parisa Martin MD Primary Care Provider [phone] Note from [facility],non-owned Affiliates and Associated Physician Practices is amultiple site organization consisting of ambulatory clinics and hospital sitesin [place], [place], [place] and [place]. This disclosure is being madepursuant to the Care Everywhere program and may not contain all information available regarding this patient. Last updated 18.[facility] Social History Tobacco Use Types Packs/Day Years Used Date Smoking Tobacco: Never Assessed Sex and Gender Information Value Date Recorded Sex Assigned at Not on file Gender Identity Not on file Sexual Orientation Not on file Care Teams Python Engineer Relationship Specialty Start Date End Date Parisa Martin MD PCP - General 07/21/11
[2025-01-19 06:52] VITALS: BP 150/83; PULSE 93; RESP 16; TEMP 36.1; O2SAT 98
[2025-01-19] MEDS: LACTATED RINGERS 1,000 ML 150 ML IV CONT (07:02)
[2025-01-19] MEDS: ONDANSETRON INJ 4 MG/2 ML VIAL IV PUSH (07:08)
--- NOTE | 2025-01-19 07:09 | P.PNAN_ITS ---
Anes - Initial Pre Proc Eval Procedure: Operation Date: 01/19/25 08:00 Proposed Procedures p Esophagogastroduodenoscopy & Colonoscopy - Harrison Miranda MD Date/Time: 01/19/25 07:09 Surgeon: Harrison Miranda MD Pre Op Diagnosis: Irritable bowel syndrome with constipatio, Epigast Patient Data Age: 44 Gender: M Height: 1.88 m Weight: 123 kg Last Vital Signs Temp 36.1 C L 01/19/25 06:52 Pulse 93 01/19/25 06:52 Resp 16 01/19/25 06:52 BP 150/83 H 01/19/25 06:52 Pulse Ox 98 01/19/25 06:52 O2 Del Method Room Air 01/19/25 06:52 Allergies Allergy/AdvReac Type Severity Reaction Status Date / Time No Known Allergies Allergy Verified 01/19/25 06:49 Home Medications ?Medication ?Instructions ?Recorded ?Confirmed ?Type cholecalciferol (vitamin D3) 125 125 mcg PO DAILY 04/15/24 01/19/25 History mcg (5,000 unit) capsule iron BYMOUTH 04/15/24 01/07/25 History lisinopril 10 mg tablet See Rx Instructions .Route 12/03/24 01/19/25 Rx .COMPLEX #90 tabs ezetimibe 10 mg tablet See Rx Instructions .Route 12/26/24 01/19/25 Rx .COMPLEX #90 tabs linaclotide 145 mcg capsule 145 mcg PO DAILY #90 caps 01/07/25 01/19/25 Rx (Linzess) omeprazole 40 mg capsule,delayed 40 mg PO DAILY #30 caps 01/07/25 01/19/25 Rx release Patient hx anesthesia problems: none Family hx anesthesia problems: none Results Review: All pre-operative results and documents have been reviewed as part of the pre- operative evaluation. [facility] Past Medical History Medical History (Updated 01/19/25 @ 07:09 by Homero Puckett MD) Hypertension Positive colorectal cancer screening using Cologuard test Hidradenitis suppurativa Psoriasis Fracture of left foot Surgical History Surgical History (Updated 01/19/25 @ 07:10 by Homero Puckett MD) H/O colonoscopy H/O hernia repair Family History Family History Mother Family history of thyroid disease Father Family history of seizure disorder Other Hypertension Social History Social History Smoking packs per day: 1 Smoking cigarettes per day: 20.0 Years smoked: 30 Smoking pack-years: 30.00 Smoking status: Current every day smoker Tobacco type: cigarettes Second hand tobacco smoke exposure: No Alcohol intake: never Substance use: current Substance use type: marijuana Other substance usage details: smokes marijuana a few times a week Do You Feel Safe in your Home?: Yes Lack of Transportation: No Lack of Food: Never True Current Housing: I Have Housing Concerned About Future Housing: No Difficulty Paying Gas/Electric Bills: No Difficulty Paying for Meds: No Currently Unemployed: No Education: Trade/Vocational Certificate Difficulty w/ Childcare or Family Care: No Living arrangements: with family Occupation/Education: occupation Gender identity (if verbalized by the patient): Male Sexual Orientation (if Verbalized by the Patient): Straight or Heterosexual Spiritual care concerns: No Agree to blood products: Yes Anes - Eval Final PreProcedure Day of Procedure 01/19/25 07:09 Patient weight: obese Heart: regular rate and rhythm Lungs: clear to auscultation Airway: Mallampati scale class III Neurological: alert and oriented Last oral intake: >/= 8 hours ASA classification: III Emergent: no Anesthetic plan: proceed Anesthesia type and monitoring: general GIVS and standard monitoring Results Review: All pre-operative results and documents have been reviewed as part of the pre- operative evaluation. Informed Consent: The patient's anesthetic plan and its attendant risks and benefits were discussed with the patient/family/POA. Questions were solicited and answers provided to the satisfaction of the patient/family/POA.
--- NOTE | 2025-01-19 07:09 | SUR.PREOP ---
Patient requesting zofran due to nausea and vomiting. Orders received from Dr. Puckett for 4mg IV push zofran once.
--- NOTE | 2025-01-19 07:48 | WPDHPUPDATE1 ---
History and Physical Update Update Date/Time: 01/19/25 07:48 History and Physical has been reviewed, including an updated exam of the patient. There are NO changes in the patient's condition. Risks, benefits, and alternatives have been discussed and questions answered. Patient agrees to proceed with procedure.
[2025-01-19] MEDS: BENZOCAINE (*SP) 60 ML SPRAY CAN (HURRICAINE) 1 SPRAY MUCOUS MEM (08:04)
--- NOTE | 2025-01-19 08:13 | SUR.OPER ---
EGD end time: 807, Colonoscopy start time: 811
[2025-01-19 08:26] VITALS: BP 118/73; PULSE 76; RESP 20; O2SAT 100
[2025-01-19 08:36] VITALS: BP 123/71; PULSE 81; RESP 20; O2SAT 100
[2025-01-19 08:46] VITALS: BP 123/71; PULSE 70; RESP 20; O2SAT 100
== END 2025-01-19 08:51 | disposition home or self-care (01) ==
PROVIDERS: PCP Nurse Practitioner Family; Referring Provider Nurse Practitioner; Visit Provider Internal Medicine Gastroenterology
PROC: 0DJ08ZZ Inspection of Upper Intestinal Tract, Via Natural or Artificial Opening Endoscopic (ICD-10-PCS; CPT 45378; principal; 2025-01-19 08:00)
DX: K64.8 Other hemorrhoids (principal); K21.9 Gastro-esophageal reflux disease without esophagitis; I10 Essential (primary) hypertension; K58.1 Irritable bowel syndrome with constipation; L40.9 Psoriasis, unspecified; F17.210 Nicotine dependence, cigarettes, uncomplicated; F12.90 Cannabis use, unspecified, uncomplicated; E66.9 Obesity, unspecified; Z68.34 Body mass index [BMI] 34.0-34.9, adult; Z98.890 Other specified postprocedural states; Z90.49 Acquired absence of other specified parts of digestive tract; Z86.0100 Personal history of colon polyps, unspecified
CPT/HCPCS: 43239; 45378; 88305; J2003; J2405; J2704; J7120

== ENCOUNTER 2025-04-13 15:05 | Emergency (ER) | payer OTHER, SELFPAY ==
--- NOTE | 2025-04-13 15:11 | ED.EXTPRO ---
HPI - Extremity Problem General Chief complaint: Skin/Abscess/Foreign Body Stated complaint: Lt Shoulder Pain Time Seen by Provider: 04/13/25 15:05 Source: patient Mode of arrival: ambulatory Limitations: no limitations Related Data Home Medications ?Medication ?Instructions ?Recorded ?Confirmed ?Last Taken ?Type cholecalciferol (vitamin D3) 125 125 mcg PO DAILY 04/15/24 04/08/25 01/18/25 History mcg (5,000 unit) capsule iron BYMOUTH 04/15/24 04/08/25 01/13/25 History Allergies Allergy/AdvReac Type Severity Reaction Status Date / Time No Known Allergies Allergy Verified 04/13/25 15:18 Review of Systems Review of Systems: All systems reviewed & are unremarkable except as noted in HPI and below Constitutional: Constitutional: Denies body ache(s), Denies chills, Denies fatigue, Denies fever(s), Denies headache(s), Denies malaise and Denies weakness Eyes: Eyes: Denies blurry vision, Denies irritation and Denies loss of vision ENT: Denies otalgia, Denies headache(s), Denies nasal discharge, Denies sinus pain and Denies sore throat Cardiovascular: Cardiovascular: Denies chest pain, Denies irregular heart rhythm and Denies dyspnea Respiratory: Respiratory: Denies dyspnea Gastrointestinal: Gastrointestinal: Denies abdominal pain, Denies melena, Denies hematochezia, Denies diarrhea, Denies nausea and Denies vomiting Musculoskeletal: Musculoskeletal: Denies back pain, Denies myalgias and Denies arthralgias Integumentary/Breasts: Skin/Breast: Denies pruritus and Denies rash Neurologic: Denies headache(s), Denies loss of vision and Denies weakness Psychiatric: Psychiatric: Reports no additional psychiatric complaints Endocrine: Endocrine: Denies fatigue PMFSH Past Medical History Medical History Hypertension Positive colorectal cancer screening using Cologuard test Hidradenitis suppurativa Psoriasis Fracture of left foot Surgical History Surgical History H/O colonoscopy H/O hernia repair Family History Family History Mother Family history of thyroid disease Father Family history of seizure disorder Other Hypertension Social History Social History Smoking packs per day: 1 Smoking cigarettes per day: 20.0 Years smoked: 30 Smoking pack-years: 30.00 Smoking status: Current every day smoker Tobacco type: cigarettes Second hand tobacco smoke exposure: No Alcohol intake: never Substance use: current Substance use type: marijuana Other substance usage details: smokes marijuana a few times a week Do You Feel Safe in your Home?: Yes Lack of Transportation: No Lack of Food: Never True Current Housing: I Have Housing Concerned About Future Housing: No Difficulty Paying Gas/Electric Bills: No Difficulty Paying for Meds: No Currently Unemployed: No Education: Trade/Vocational Certificate Difficulty w/ Childcare or Family Care: No Living arrangements: with family Occupation/Education: occupation Gender identity (if verbalized by the patient): Male Sexual Orientation (if Verbalized by the Patient): Straight or Heterosexual Spiritual care concerns: No Agree to blood products: Yes Comments At time of signature, agree with nursing past medical, surgical, social and family history. There is no relevant family history pertinent to the presenting complaint. Exam Const: General: cooperative, healthy appearing, comfortable, no acute distress and well nourished Nutritional Appearance: well nourished Orientation/consciousness: patient oriented x3 Limitations: no limitations HENMT: Head: normal to inspection, normocephalic and atraumatic Ears: hearing grossly normal bilaterally and external ears normal Face/Nose/Sinus: Normal external nose present, normal facial exam and face symmetric Face and sinus: normal facial exam and face symmetric Mouth: Yes lip normal Eyes: General: appearance normal, both eyes and all related structures Alignment and Position: alignment normal and position normal Periorbital: periorbital findings normal Eyelids: eyelids normal Pupils: Equal, round and reactive pupils present EOM: EOMs intact bilaterally Neck: Neck: normal visual inspection, full ROM and supple Chest: Chest palpation & inspection: normal inspection of the chest Resp: Effort & Inspection: normal respiratory effort and able to speak in complete sentences Auscultation: clear to auscultation bilaterally Cardio: Rate: regular rate Rhythm: regular rhythm Heart sounds: S1 normal heart sound present and S2 normal heart sound present GI: Inspection: normal to inspection Skin: General skin exam: normal color and no rashes or lesions noted Neuro: General: patient oriented x3 and moves all extremities Cranial nerves: Yes Equal, round and reactive pupils present Speech: normal speech Gait exam (Neuro): Normal gait present Extrem: General: normal to inspection, full ROM and no edema Psych: Appearance: grossly normal and well kempt Mental Status: mental status grossly normal Speech and movement: Normal speech and movement present Affect: normal affect Attitude: cooperative Thought process: Normal thought process present Course Course Emergency Course: Patient is aware of diagnosis, understands and agrees to treatment plan. Anticipatory guidance given. Patient agrees to follow-up as directed and is aware of reasons to seek care at the emergency department. Portions of this record may have been created with voice recognition software Level of Care: [facility] Visit Vital Signs Vital signs: Reviewed Discharge Plan Discharge Clinical Impression: Abscess of skin or subcutaneous tissue Qualifiers: Site of cutaneous abscess: trunk Site of cutaneous abscess of trunk: chest wall Qualified Code(s): L02.213 - Cutaneous abscess of chest wall Patient Disposition: Home Condition: Stable Instructions: Abscess (ED) Additional Instructions: Take antibiotics as prescribed You have had an abscess drained at [facility]. You may shower - let the soapy water clean your wound, do not scrub it. Keep your wound covered to prevent transmission of infection to other people. Keep the wound covered and dry. Once a day: wash the wound with soap/water, apply bacitracin or neosporin and re-cover the wound. Follow up with your primary care physician or in the Emergency Department in 2-3 days for a wound check. Go to the Emergency Department immediately if you develop any of the following symptoms: Fevers, Increased redness or swelling around where your abscess was, Increased pain, or Generalized weakness or vomiting Patient Language: Cymro Prescriptions: New clindamycin HCl 300 mg capsule 300 mg PO Q8H 10 Days Qty: 30 0RF mupirocin 2 % ointment 1 applic topical BID Qty: 15 0RF No Action lisinopril 10 mg tablet See Rx Instructions .ROUTE .COMPLEX Qty: 90 1RF Dose Instruction: TAKE 1 TABLET BY MOUTH DAILY Rx Instructions: TAKE 1 TABLET BY MOUTH DAILY ezetimibe 10 mg tablet See Rx Instructions .ROUTE .COMPLEX Qty: 90 1RF Dose Instruction: TAKE 1 TABLET BY MOUTH DAILY Rx Instructions: TAKE 1 TABLET BY MOUTH DAILY cholecalciferol (vitamin D3) 125 mcg (5,000 unit) capsule 125 mcg PO DAILY iron BYMOUTH omeprazole 40 mg capsule,delayed release(DR/EC) 40 mg PO DAILY Qty: 30 6RF Linzess 72 mcg capsule 72 mcg PO QAM Qty: 90 3RF Follow-up/Referrals: Yamilex Moralez APRN [Primary Care Provider] - 3 Days Stand Alone Forms: Work/School Release IP Time of Disposition: 15:49
[2025-04-13 15:14] VITALS: BP 132/80; PULSE 81; RESP 16; TEMP 36.6; O2SAT 97
[2025-04-13] MEDS: LIDOCAINE 1% LOCAL INJ 2 ML AMPUL 4 ML INFILTRATE (15:25)
--- NOTE | 2025-04-13 15:51 | ED.SKABFB ---
HPI - Skin/Abscess/Foreign Bdy General Chief complaint: Skin/Abscess/Foreign Body Stated complaint: Lt Shoulder Pain Time Seen by Provider: 04/13/25 15:05 Source: patient Mode of arrival: ambulatory Limitations: no limitations History of Present Illness HPI narrative: Patient is a 44-year-old male who presents with abscess to left chest wall. Patient states has been going on for about a week but the last few days has worsened significantly. Patient has history of multiple boils in missed last injectable dosed to prevent recurrences. Denies any fever, chills, nausea, vomiting, diarrhea. Has been using warm compresses with no relief. Related Data Home Medications ?Medication ?Instructions ?Recorded ?Confirmed ?Last Taken ?Type cholecalciferol (vitamin D3) 125 125 mcg PO DAILY 04/15/24 04/08/25 01/18/25 History mcg (5,000 unit) capsule iron BYMOUTH 04/15/24 04/08/25 01/13/25 History Allergies Allergy/AdvReac Type Severity Reaction Status Date / Time No Known Allergies Allergy Verified 04/13/25 15:18 Review of Systems Review of Systems: All systems reviewed & are unremarkable except as noted in HPI and below Constitutional: Constitutional: Denies body ache(s), Denies chills, Denies fatigue, Denies fever(s), Denies headache(s), Denies malaise and Denies weakness Eyes: Eyes: Denies blurry vision, Denies irritation and Denies loss of vision ENT: Denies otalgia, Denies headache(s), Denies nasal discharge, Denies sinus pain and Denies sore throat Cardiovascular: Cardiovascular: Denies chest pain, Denies irregular heart rhythm and Denies dyspnea Respiratory: Respiratory: Denies dyspnea Gastrointestinal: Gastrointestinal: Denies abdominal pain, Denies melena, Denies hematochezia, Denies diarrhea, Denies nausea and Denies vomiting Musculoskeletal: Musculoskeletal: Denies back pain, Denies myalgias and Denies arthralgias Integumentary/Breasts: Skin/Breast: Denies pruritus, Reports erythema, Denies rash and Reports skin swelling Neurologic: Denies headache(s), Denies loss of vision and Denies weakness Psychiatric: Psychiatric: Reports no additional psychiatric complaints Endocrine: Endocrine: Denies fatigue PMFSH Past Medical History Medical History Hypertension Positive colorectal cancer screening using Cologuard test Hidradenitis suppurativa Psoriasis Fracture of left foot Surgical History Surgical History H/O colonoscopy H/O hernia repair Family History Family History Mother Family history of thyroid disease Father Family history of seizure disorder Other Hypertension Social History Social History Smoking packs per day: 1 Smoking cigarettes per day: 20.0 Years smoked: 30 Smoking pack-years: 30.00 Smoking status: Current every day smoker Tobacco type: cigarettes Second hand tobacco smoke exposure: No Alcohol intake: never Substance use: current Substance use type: marijuana Other substance usage details: smokes marijuana a few times a week Do You Feel Safe in your Home?: Yes Lack of Transportation: No Lack of Food: Never True Current Housing: I Have Housing Concerned About Future Housing: No Difficulty Paying Gas/Electric Bills: No Difficulty Paying for Meds: No Currently Unemployed: No Education: Trade/Vocational Certificate Difficulty w/ Childcare or Family Care: No Living arrangements: with family Occupation/Education: occupation Gender identity (if verbalized by the patient): Male Sexual Orientation (if Verbalized by the Patient): Straight or Heterosexual Spiritual care concerns: No Agree to blood products: Yes Comments At time of signature, agree with nursing past medical, surgical, social and family history. There is no relevant family history pertinent to the presenting complaint. Exam Const: General: cooperative, healthy appearing, comfortable, no acute distress and well nourished Nutritional Appearance: well nourished Orientation/consciousness: patient oriented x3 Limitations: no limitations HENMT: Head: normal to inspection, normocephalic and atraumatic Ears: hearing grossly normal bilaterally and external ears normal Face/Nose/Sinus: Normal external nose present, normal facial exam and face symmetric Face and sinus: normal facial exam and face symmetric Mouth: Yes lip normal Eyes: General: appearance normal, both eyes and all related structures Alignment and Position: alignment normal and position normal Periorbital: periorbital findings normal Eyelids: eyelids normal Pupils: Equal, round and reactive pupils present EOM: EOMs intact bilaterally Neck: Neck: normal visual inspection, full ROM and supple Chest: Chest palpation & inspection: normal inspection of the chest Resp: Effort & Inspection: normal respiratory effort and able to speak in complete sentences Auscultation: clear to auscultation bilaterally Cardio: Rate: regular rate Rhythm: regular rhythm Heart sounds: S1 normal heart sound present and S2 normal heart sound present GI: Inspection: normal to inspection Skin: General skin exam: normal color, no rashes or lesions noted and erythema Full body images:  1. 3cm x 4cm are of erythema and warmth with induration and fluctuation at the center. Neuro: General: patient oriented x3 and moves all extremities Cranial nerves: Yes Equal, round and reactive pupils present Speech: normal speech Gait exam (Neuro): Normal gait present Extrem: General: normal to inspection, full ROM and no edema Psych: Appearance: grossly normal and well kempt Mental Status: mental status grossly normal Speech and movement: Normal speech and movement present Affect: normal affect Attitude: cooperative Thought process: Normal thought process present Course Course Emergency Course: Patient is aware of diagnosis, understands and agrees to treatment plan. Anticipatory guidance given. Patient agrees to follow-up as directed and is aware of reasons to seek care at the emergency department. Portions of this record may have been created with voice recognition software Level of Care: Express Care Visit Vital Signs Vital signs: Vital Signs Temperature 36.6 C 04/13/25 15:14 Pulse Rate 81 04/13/25 15:14 Respiratory Rate 16 04/13/25 15:14 Blood Pressure 132/80 04/13/25 15:14 Pulse Oximetry 97 04/13/25 15:14 Oxygen Delivery Room Air 04/13/25 15:14 Temperature 36.6 C 04/13/25 15:14 Pulse Rate 81 04/13/25 15:14 Respiratory Rate 16 04/13/25 15:14 Blood Pressure 132/80 04/13/25 15:14 Pulse Oximetry 97 04/13/25 15:14 Oxygen Delivery Room Air 04/13/25 15:14 Reviewed Procedures Abscess I/D chest: Date of Incision: 04/13/25 Time of Incision: 15:35 Side (if applicable): left Sedation/analgesia: none Local Anesthetic: lidocaine 1% Amount of anesthesia used (mL): 3 Technique: incised with #11 blade Amount of fluid expressed (mL): 5 Irrigation: Yes Packing used?: none I&D Results: Pus and Blood Abcess I&D Additional Comments: Verbal consent were obtained. The indication for the procedure was clinical suspicion for an abscess. The region was anesthetized with local anesthetic. The most fluctuant portion of the abscess was incised with an 11 blade scalpel. The abscess cavity of explored and irrigated. Patient tolerated well and there were no complications MDM - Skin/Abscess/Foreign Bdy MDM Narrative Medical decision making narrative: Performed I&D on abscess. Patient tolerated well. Covered with antibiotic ointment and Band-Aid. Pt well hydrated appearing, in no respiratory distress, hemodynamically stable. Recommend supportive care. The patient is stable at time of discharge the clinical impression was discussed and the patient was given the opportunity to ask questions, which were addressed as completely as possible given the information available at present. Anticipatory guidance and return to care precautions were discussed and the importance of primary care follow-up was stressed and encouraged. The patient voiced understanding of the plan, indications to return, and the need for follow-up. Exam findings show no acute concerns or changes Patient is appropriate for outpatient treatment and follow-up. Differential Diagnosis Differential diagnosis: Likely abscess of skin or subcutaneous tissue and cellulitis Medical Records Attestation: I reviewed the patient's medical records. Discharge Plan Discharge Clinical Impression: Abscess of skin or subcutaneous tissue Qualifiers: Site of cutaneous abscess: trunk Site of cutaneous abscess of trunk: chest wall Qualified Code(s): L02.213 - Cutaneous abscess of chest wall Patient Disposition: Home Condition: Stable Instructions: Abscess (ED) Additional Instructions: Take antibiotics as prescribed You have had an abscess drained at [facility]. You may shower - let the soapy water clean your wound, do not scrub it. Keep your wound covered to prevent transmission of infection to other people. Keep the wound covered and dry. Once a day: wash the wound with soap/water, apply bacitracin or neosporin and re-cover the wound. Follow up with your primary care physician or in the Emergency Department in 2-3 days for a wound check. Go to the Emergency Department immediately if you develop any of the following symptoms: Fevers, Increased redness or swelling around where your abscess was, Increased pain, or Generalized weakness or vomiting Patient Language: Lao Prescriptions: New clindamycin HCl 300 mg capsule 300 mg PO Q8H 10 Days Qty: 30 0RF mupirocin 2 % ointment 1 applic topical BID Qty: 15 0RF No Action lisinopril 10 mg tablet See Rx Instructions .ROUTE .COMPLEX Qty: 90 1RF Dose Instruction: TAKE 1 TABLET BY MOUTH DAILY Rx Instructions: TAKE 1 TABLET BY MOUTH DAILY ezetimibe 10 mg tablet See Rx Instructions .ROUTE .COMPLEX Qty: 90 1RF Dose Instruction: TAKE 1 TABLET BY MOUTH DAILY Rx Instructions: TAKE 1 TABLET BY MOUTH DAILY cholecalciferol (vitamin D3) 125 mcg (5,000 unit) capsule 125 mcg PO DAILY iron BYMOUTH omeprazole 40 mg capsule,delayed release(DR/EC) 40 mg PO DAILY Qty: 30 6RF Linzess 72 mcg capsule 72 mcg PO QAM Qty: 90 3RF Follow-up/Referrals: Yamilex Moralez APRN [Primary Care Provider] - 3 Days Stand Alone Forms: Work/School Release IP Time of Disposition: 15:49
--- OUTSIDE RECORDS SUMMARY | 2025-04-13 16:07 | XMS_ITS | Data Portability ---
Author Organization [facility] [employer] [place], Main Office Address [address] [place] [address] Care Team Providers Care Hose Operator Name Role Phone HAROLDO HORNMSI Primary Care Provider [phone] KORY RYAN Referring Provider [phone] COLIN HENRY International Accounting Manager [phone] PAULY HENRY International Accounting Manager [phone] MG UDNLAP Primary Care Provider [phone] FÉLIX ROSAS Referring Provider Assessment No assessment recorded. Plan of Treatment Reminders Order Date Submit Date Provider Last Modified By Organization Details Last Modified Time Details Appointments None recorded. Lab None recorded. Referral None recorded. Procedures injection/a spiration joint/bursa (PROC) - in office procedure, administere d by provider 2022 023 [email or web address] In-Office Order, Internal Use Only DO Not Attach Compendium DO Not Attach Compendium, Do Not Delete/merge, [id number] 14:23:33 Surgeries None recorded. Imaging XR, shoulder 2022 023 [email or web address] r1 [facility] [place], [address], [place], [address], 17:43:44 MRI, shoulder, w/o contrast - please contact patient to schedule 2022 023 SHEFALI [facility], [facility] , [place], [address], 15:40:46 Medication Orders Kenalog 10 mg/mL suspension for injection 2022 023 [facility] #[id number], [address] [place], [place], [phone], 3 14:28:24 ropivacaine (PF) 5 mg/mL (0.5 %) injection solution 2022 023 [facility] #[id number], [address] [place], [place], [phone], 3 14:28:24 Patient TargetsNo targets recorded. Patient InstructionsNo instructions recorded. Reason for Referral None Reported. Results Created Date Observation Date Name Description Value Unit Range Abnormal Flag Note LastModifiedBy Organization Detail LastModifiedTime 01/13/20 22 XR, foot No observ ation record ed. [id number] [facility] [address], [place], [address], 01/03/2023 00:51:56 01/27/20 22 XR, foot No observ ation record ed. [id number] [facility] [place] [address] [address], [place], [address], 01/03/2023 00:51:56 02/24/20 22 02/23/2022 XR, foot No observ ation record ed. [id number] [facility] [place] [address], [place], [address], 01/03/2023 00:51:56 03/09/20 22 XR, foot No observ ation record ed. [id number] [facility] [place] [address] [facility] [address], [place], [address], 01/03/2023 00:51:56 03/13/20 23 XR, shoul sammy No observ ation record ed. [email or web address] [facility] [place] [address], [place], [address], 03/13/2023 14:37:50 04/11/20 MRI, shoul sammy, w/o contr ast [facility] [address], [place] [address] Patien t Name: IDALIA RAUSCH Access ion #: [id number] Sex: M : 1979 7 6 Locati on: RA2 Attend ing Physic meng: YANA JESUS Physic meng: YANA JESUS Exam Date: 04/11/20 11:51 AM Exam Name: MRI SHOULD ER LT WO Admitt ing Diagno sis(es ): RADIOL OGY REPORT - FINAL EXAM: MRI SHOULD ER LT WO HISTOR Y: tendin itis of left rotato r cuff 42-yea r-old male with left should er pain after fall; limite d range of motion ; left should er surger y about 1 year ago. COMPAR BETH: Left should er radiog raphs dated 2022; left should er MRI dated 2020; left should er MRI dated 2020. TECHNI QUE: Multip lanar multis equenc e noncon trast MR images of the left should er were perfor med. FINDIN GS: No fractu re or bone marrow edema are identi fied about the left should er. There are mild subcor tical cystic change s of the ryder l head deep to the infras pinatu s tendon insert ion. No eviden ce of full-t hickne ss rotato r cuff Page 1 of 2 [facility] Patien t Name: IDALIA RAUSCH Access ion #: [id number] Sex: M : 1979 7 6 Exam Date: 04/11/20 11:51 AM Exam Name: MRI SHOULD ER LT WO Admitt ing Diagno sis(es ): tear. There is thicke mike and signal abnorm ality of the supras pinatu s and subsca pulari s tendon s near the insert ion. There are partia l thickn ess intras ubstan ce tears of the supras pinatu s tendon and muscul otendi nous juncti on. The labrum is intact . There is thicke mike of the anteri or inferi or glenoh umeral ligame nt (image s 7 and 10, series 801; images 9-12, series 501). The long head of the biceps tendon is intact and locate d in the bicipi kristi groove . There is acromi oclavi cular hypert rophy with mild fluid signal in the joint. The unders urface of the acromi on is curved . Subacr omial space is mainta ined. There is a small glenoh umeral effusi on. There is trace fluid in the subacr omial- subdel toid region . IMPRES SILVA: 1. No fractu re of the left should er. 2. Supras pinatu s and subsca pulari s tendin osis, and partia l-thic kness intras ubstan ce tears of the supras pinatu s tendon and muscul otendi nous juncti on. No eviden ce of full-t hickne ss rotato r cuff tear. 3. Thicke mike of the anteri or inferi or glenoh umeral ligame nt is sugges tive of adhesi ve capsul itis. 4. Acromi oclavi cular hypert rophy and mild synovi tis. 5. Mild subacr omial- subdel toid bursit is. Create d and electr onical ly signed by: Trey wilkinson MD Signed Date: 04/11/20 2:38 PM (CT) Dictat ed by: Trey wilkinson MD (CT) (CT) Page [address] (Imaging) [address] [place], [address], 04/12/2023 07:51:35 Result Notes None recorded. Problems Name Problem SNOMED Code Status Onset Date Resolution Date Notes Provider Name and Address Organization Details Recorded Time Injury of left ankle 5284383086648 9104 Active Not Available [facility] 3 00:46:49 Pain of left ankle joint 5104429469482 9103 Active 2021 Not Available [facility] 3 00:46:49 Tendinitis of left rotator cuff 1850723449630 9101 Active 2021 Not Available [facility] 3 00:46:49 Partial thickness rotator cuff tear 727588016 Active 2021 Not Available [facility] 3 00:46:49 Pain in left foot 5323771943521 07 Active 2021 Not Available [facility] 3 00:46:50 Foot pain 24137415 Active 2021 Not Available [facility] 3 00:46:50 Cigarette smoker 62064930 Active 2021 Not Available [facility] 3 00:46:50 Closed fracture of fifth metatarsal bone 32118696 Active 2021 Not Available [facility] 3 00:46:50 Pain of left acromiocla vicular joint 778980346 Active 2022 Yana Jesus MD [address] [place] [address], [address] , [facility] [employer] 3 14:37:37 Problem Notes None recorded. Medical Equipment None Reported. Medications Name Sig Start Date Stop Date Status Note LastModified by Organization Details LastModified Time bupropion HCl SR 150 mg tablet,12 hr sustained-r elease 01/10 completed Not Available Not Available Not Available nicotine 14 mg/24 hr daily transdermal patch APPLY 1 PATCH DIRECTED ONCE EACH DAY FOR 14 DAYS AFTER USING 21MG PATCHES active Not Available Not Available No t Available hydrocodone 5 mg-acetamin ophen 325 mg tablet TAKE 1 TABLET BY MOUTH EVERY 6 HOURS NEEDED FOR PAIN 01/10 completed Not Available Not Available Not Available clobetasol 0.05 % topical cream APPLY A THIN LAYER TO ARMS AND LEGS TWICE DAILY NEEDED active Not Available Not Available No t Available sulfamethox azole 800 mg-trimetho prim 160 mg tablet TAKE 1 TABLET BY MOUTH EVERY 12 HOURS active Not Available Not Available No t Available Kenalog 10 mg/mL suspension for injection Take 20 mg by injection route. 2022 active NDC: 0003- 0494- 20 Not Available Not Available Not Available hydrocodone 7.5 mg-acetamin ophen 325 mg tablet TAKE 1 TABLET BY MOUTH EVERY 6 HOURS NEEDED 01/10 completed Not Available Not Available Not Available cephalexin 500 mg capsule TAKE ONE CAPSULE BY MOUTH EVERY 8 HOURS FOR 10 DAYS active Not Available Not Available No t Available calcipotrie ne 0.005 % topical cream APPLY TOPICALLY TO THE AFFECTED AREA DAILY. RUB IN GENTLY AND COMPLETEL Y TO ELBOW 01/10 completed Not Available Not Available Not Available polymyxin B sulfate 10,000 unit-trimet hoprim 1 mg/mL eye drops INSTILL 1 DROP IN RIGHT EYE EVERY 4 HOURS WHILE AWAKE FOR 7 DAYS. DO NOT EXCEED 6 DOSES IN 24 HOURS 01/10 completed Not Available Not Available Not Available nicotine 21 mg/24 hr daily transdermal patch active Not Available Not Available Not Available hydrocortis one 2.5 % topical cream APPLY A THIN FILM TO THE AFFECTED SKIN AND RUN IN GENTLY TO FACE TWICE DAILY 03/13 completed Not Available Not Available Not Available mupirocin 2 % topical ointment APPLY 1 APPPLICAT ION TOPICALLY IN NOSTRILS TWICE DAILY FOR 7 DAYS 03/13 completed Not Available Not Available Not Available diazepam 10 mg tablet TK 1 T PO 1 HOUR BEFORE PROCEDURE active Not Available Not Available No t Available doxycycline hyclate 100 mg tablet TAKE 1 TABLET BY MOUTH TWICE DAILY 01/10 completed Not Available Not Available Not Available nicotine 7 mg/24 hr daily transdermal patch APPLY 1 PATCH ONCE DAILY FOR 14 DAYS AFTER USING 21MG AND 14MG PATCHES active Not Available Not Available No t Available rosuvastati n 10 mg tablet TK 1 T PO D active Not Available Not Available No t Available lidocaine (PF) 10 mg/mL (1 %) injection solution In office injection administe red by the provider 01/10 completed NDC: 0409- 4276- 17 Not Available Not Available Not Available cephalexin 750 mg capsule TAKE 1 CAPSULE BY MOUTH EVERY 12 HOURS 01/10 completed Not Available Not Available Not Available ropivacaine (PF) 5 mg/mL (0.5 %) injection solution Take 10 mg by injection route. 2022 active [facility] 43263 -064- 01 Not Available Not Available Not Available Vitals Date Recorded Body mass index (BMI) Body height Body weight Provider Name and Address Organization Details Last Updated DateTime 01/26/2022 37 kg/m2 187.96 cm 639549.6 g Not Available [facility] 01/03/2023 00:45:57 Date Recorded Body height Body mass index (BMI) Body weight Provider Name and Address Organization Details Last Updated DateTime 03/13/2023 187.96 cm 35.3 kg/m2 775297.9 g BO Whitman [employer] 03/13/2023 13:55:03 Date Recorded Body height Body mass index (BMI) Body weight Provider Name and Address Organization Details Last Updated DateTime 04/17/2023 187.96 cm 35.9 kg/m2 085371.86 g Rossy Hawkins ATC L [employer] 04/17/2023 11:27:36 Social History Question Answer Notes LastModified by Ravti Details LastModified Time Tobacco Smoking Status Current Every Day Smoker Not Available [facility] 01/03/2023 00:41:58 What Was The Date Of Your Most Recent Tobacco Screening? 01/10/2022 [id number] Information not available 01/03/2023 How Much Tobacco Do You Smoke? 0.5 PPD [email or web address] Information not available 03/13/2023 Sex: Unknown Functional Status Question Answer Note LastModified by Ravti Details LastModified Time What is your level of alcohol consumption? None [id number] Information not available 01/03/2023 Mental Status None recorded. Family History Nothing Reported. Medical History No medical history recorded. Past Encounters Encounter ID Performer Location Encounter Start Date Encounter Closed Date Diagnosis/Indication Diagnosis SNOMED-CT Code Diagnosis ICD10 Code Diagnosis Note [id number] Yana Jesus MD [facility] [place] [address] [place] [address] 01/04/2021 00:00:00 01/04/2021 12:01:52 [id number] Yana Jesus, MD [facility] [place] [address] [place] [address] 01/18/2021 00:00:00 01/18/2021 12:42:42 [id number] Yana Jesus MD [facility] [place] [address] [place] [address] 02/15/2021 00:00:00 02/15/2021 13:50:21 [id number] Yana Jesus MD [facility] [place] [address] [place] [address] 03/29/2021 00:00:00 03/29/2021 09:20:54 [id number] MD SHAN [facility] [place] [address] [place] [address] 04/05/2021 00:00:00 04/05/2021 09:45:24 [id number] Yana Jesus MD [facility] [place] [address] [place] [address] 05/03/2021 00:00:00 05/03/2021 09:28:19 [id number] Yana Jesus MD [facility] [place] [address] [place] [address] 06/07/2021 00:00:00 06/07/2021 13:21:49 [id number] Yana Jesus MD [facility] [place] [address] [place] [address] 07/05/2021 00:00:00 07/05/2021 16:18:48 [id number] Yana Jesus MD [facility] [place] [address] [place] [address] 08/09/2021 00:00:00 08/09/2021 11:00:52 [id number] Yana Jesus MD [facility] [place] [address] [place] [address] 08/30/2021 00:00:00 08/30/2021 09:30:26 [id number] Yana Jesus MD [facility] [place] [address] [place] [address] 11/08/2021 00:00:00 11/08/2021 14:30:40 [id number] Yana Jesus MD [facility] [place] [address] [place] [address] 01/10/2022 00:00:00 01/10/2022 09:32:59 [id number] [facility] [place] [address] [place] [address] 01/12/2022 00:00:00 01/14/2022 12:37:58 [id number] [facility] [place] [address] [place] [address] 01/26/2022 00:00:00 01/26/2022 11:17:00 [id number] [facility] [place] [address] [place] [address] 02/23/2022 00:00:00 02/23/2022 12:28:02 [id number] [facility] [place] [address] [place] [address] 03/09/2022 00:00:00 03/09/2022 10:24:59 [id number] Yana Jesus MD [facility] [place] [address] [place] [address] 03/13/2023 13:36:51 03/13/2023 15:45:13 Partial thickness rotator cuff tear 988681499 M75.112 Tendinitis of left rotator cuff 2236532782 6376865 M67.814 Pain of le ft acromioclavicular joint 627971642 M25.512 we injected the left AC joint 2 cc xylocaine 2 cc Kenalog starting standard protocol. We will get an MRI scan to recheck his cuff and see if there is any signs of impingemen t on the musculoten dinous juncture of the supraspina tus right underneath the AC joint area. Return to work tomorrow as he will need this afternoon off after the injection [id number] Yana Jesus MD [facility] [place] [address] [place], [place] [address] 04/17/2023 11:24:37 04/17/2023 11:48:29 Tendinitis of left rotator cuff 8537054581 0530793 M67.814 the study show anywhere from a 60 to as high as a 90% improvemen t after debridemen t subacromia l decompress ions for intrasubst ance partial-th ickness tears and tendinopat hy. For those that fail they can either continue with the therapy program and conservati ve treatment or can consider repeat arthroscop y evaluate further for decompress ion of the subacromia l space further and some studies are showing improved results with grafting of the cuff 1 of which would be the Regeneten graft from [employer]. We discussed at length the risks the benefits alternativ es we could do a repeat arthroscop y bursectomy evaluate for any further subacromia l decompress ion if necessary and then at the same time graft over that segment of the supraspina tus still causing him pain again probably somewhere in the 60-90% at best improvemen t no guarantee that he will have a full range of motion with painless shoulder function even with repeat debridemen t Partial th ickness rotator cuff tear 768775894 M75.112 Health Concerns Section Related Observation LastModified by Organization Detai ls LastModified Time None Recorded Concern Status LastModified by Organization Details LastModified Time None Recorded Advance Directives Directive None Recorded Payers Encounter Date Sequence Insurance Name Policy Number Policy Pardo Covered Member ID Pardo Member ID Guarantor Name 03/13/2023 OTILIO Schaefer 04/17/2023 1 [facility] [id number] Idalia Schaefer [id number] Idalia Schaefer Notes Date Note Type Note Provider Name and Address Organization Details Recorded Time 03/13/2023 text/html patient is still having pain in his left shoulder hurts with overhead activity comes in today for follow-up patient had a arthroscopic evaluation of the shoulder we did debridement of the labrum to the subacromial bursectomy with the limited debridement as well as the left volar ganglion excision at the same time he has not had any recurrence of the left wrist pain but is still having left shoulder pain especially if he has to do any overhead activity Yana Jesus MD [address] [facility] [address], [place], [address], [facility] [employer] [facility] 03/13/2023 14:40:18 04/17/2023 text/html patient had a intrasubstance partial-thickness tear/ tendinopathy of the cuff we did an arthroscopic debridement did debriding of some fraying of the labrum subacromial bursectomy with evaluation of the cuff and minimal debridement he is now 2 years postop still has some complaints of shoulder pain new MRI scan shows no fractures no bone marrow edema no full-thickness tears of the cuff he has a little thickness in the cuff involving supraspinatus and subscapularis near the insertion little intrasubstance partial tearing still within the supraspinatus labrums intact little thickening of the anterior-inferior glenohumeral ligament from previous surgery long head of the biceps tendons intact within its groove no swelling or fluid mild AC hypertrophy typical in labors Yana Jesus MD [address] [facility] [address], [place], [address], [facility] [employer] [facility] 04/17/2023 12:04:55
--- OUTSIDE RECORDS SUMMARY | 2025-04-13 16:07 | XMS_ITS | Clinical Summary ---
Author Organization [facility] Address [address] [place] [address] Care Team Providers Care Guest Service Aide Name Role Phone Parisa Martin MD Primary Care Provider Source Comments [facility],non-owned Affiliates and Associated Physician Practices is amultiple site organization consisting of ambulatory clinics and hospital sitesin [place], [place], [place] and [place]. This disclosure is being madepursuant to the Care Everywhere program and may not contain all information available regarding this patient. Last updated 18.[facility] [employer] Social History Tobacco Use Types Packs/Day Years Used Date Smoking Tobacco: Never Assessed Sex and Gender Information Value Date Recorded Sex Assigned at Not on file Legal Sex Male 7:14 PM [employer] Gender Identity Not on file Sexual Orientation [...] - 19+ 3-dose series) 1997 COVID-19 VACCINE (2023-2 5 season) 2024 DEPRESSION SCREENING 11/05/2024 INFLUENZA VACCINE (Season Ended) 2025 ZOSTER VACCINE (1 of 2) 2028 HIB [...] patient's age to complete this topic Insurance [facility] [place] Address: [facility] [address] [place] [address] SELF PAY NO INSURANCE Member Subscriber Plan / Payer (Ef fective for All Dates) Name:Idalia Schaefer Member ID:Not on file Relation to Subscriber:Not on file Name:IDALIA SCHAEFER Subscriber ID:Not on file (Home) Address: [address] [place] [address] Payer ID:Not on file Group ID:Not on file Type:Self Pay Address: [place], [place] [facility] SELF PAY NO INSURANCE Member Subscriber Plan / Payer (Ef fective for All Dates) Name:Idalia Schaefer Member ID:Not on file Relation to Subscriber:Not on file Name:IDALIA SCHAEFER Subscriber ID:Not on file Address: [address] [place] [id number] Payer ID:Not on file Group ID:Not on file Type:Self Pay Address: [place], [place] Care Teams Guest Service Aide Relationship Specialty Start Date End Date Parisa Martin MD PCP - General 07/21/11
== END 2025-04-13 15:55 | disposition home or self-care (01) ==
PROVIDERS: Emergency Provider Nurse Practitioner Family; PCP Nurse Practitioner Family
DX: L02.213 Cutaneous abscess of chest wall (principal); F17.210 Nicotine dependence, cigarettes, uncomplicated; F12.90 Cannabis use, unspecified, uncomplicated; I10 Essential (primary) hypertension; L40.9 Psoriasis, unspecified
CPT/HCPCS: 10060; 87070; 87075; 87181; 87205; 99213; G0463; J2003